=== PATIENT | female | born 1975 | race Caucasian/White ===

== ENCOUNTER 2018-11-05 12:15 | Day surgery (SDC) | payer BC, SELFPAY ==
[2018-10-29 08:22] VITALS: BMI 37.3
--- NOTE | 2018-10-29 08:56 | HP_ITS ---
Intake Vital Signs 10/29/18 Height 5 ft 6 in 10/29/18 Weight: 231 lb 10/29/18 Body Mass Index (BMI) 37.3 10/29/18 Blood Pressure 101/64 10/29/18 Blood Pressure Location Rt brachial 10/29/18 Respiratory Rate 18 10/29/18 Pulse Rate 66 Intake Visit Reasons: Inguinal Hernia 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 Is patient in pain?: Yes (left groin) Pain scale (1-10): 6 Allergies No Known Allergies Allergy (Unverified 10/29/18 08:23) Medications bupropion HCl SR 150 mg tablet,12 hr sustained-release 150 mg PO BID 10/29/18 [History Confirmed 10/29/18] cetirizine 10 mg tablet 10 mg PO DAILY 10/29/18 [History Confirmed 10/29/18] PFSH Medical History Environmental allergies (Acute) Surgical History S/P section (Acute) S/P endometrial ablation (Acute) Family History (Updated 10/29/18 @ 08:21 by Eliza Crowell) Mother Cancer throat Social History (Updated 10/29/18 @ 08:56 by Anita Marshall MD) Smoking Status: Never smoker alcohol intake: current alcohol intake frequency: a few times a month HPI HPI HPI: RISA HAYS, is a 43 F who presents to the office today for HPI HPI Surgical H&P: Yes HPI: RISA HAYS, is a 43 F who presents to the office today for left groin pain/left inguinal hernia. Patient states for about the last 3 months she has had pain in her left groin worse with standing rates, it a 5?6/10, +bulge, better with laying down. Patient did have a CT abdomen/pelvis done which did show the left inguinal hernia with fluid and no evidence of bowel herniation. Patient states she did have some nausea however her primary care doctor did put her on ranitidine 2 tabs daily as she does have reflux about every other day, which does control the symptoms and improve the nausea. Patient states she has bowel movements about every other day denies any blood denies any family history of colon cancer. ROS General General: Yes fatigue; no weight change Gastro Gastrointestinal: Yes abdominal pain, No nausea or vomiting, No diarrhea, No constipation, No blood in stool, Yes acid reflux, No hemorrhoids, No ulcers, No gallbladder problem, No black,tarry stools Exam Const General: cooperative, comfortable, no acute distress [facility] Head: normocephalic, atraumatic Resp Effort & Inspection: normal respiratory effort Cardio Rate: regular rate GI Inspection: non-distended Palpation: soft, no guarding, no hernias, nontender Other: groin?positive inguinal hernia on the left, reducible, no obvious hernia detected on the right. Neuro Cranial Nerves: CN's II-XI intact bilaterally Psych Affect: normal affect Assessment & Plan Problems 1. Left inguinal hernia K40.90 2. Gastroesophageal reflux disease K21.9 Plan Plan to do an in the left inguinal herniorrhaphy with mesh. Reviewed the procedure with the patient including the risks, including but not limited to infection, bleeding, paresthesia, chronic pain, injury to small bowel or contents of the inguinal canal, recurrence and anesthesia. Patient and her no further questions at this time. Discussed with patient that if she has reflux symptoms every other day she may benefit from being a PPI like omeprazole 20 mg p.o. daily versus the ranitidine--both OTC. Discussed with patient that her symptoms are controlled on medication and would recommend an EGD at this time however it seems like she has no symptoms on the medication. Also discussed with patient that if she is on this medication for 3 to 5 years recommend also get an EGD just to make sure nothing has been masked with the medication. Again patient and her have no further questions. Anita Marshall M.D. Pager: [phone] [facility] [address] [place] [address], [address] [place] [address] Office: [phone] Plan Detail Follow Up We will schedule left inguinal hernia repair with mesh Coding Level of Care Code Off vis,new,level 3 Diagnoses Left inguinal hernia K40.90 Gastroesophageal reflux disease K21.9 10/29/18 0856 <Electronically signed by Anita Lu am, MD> Date _ Anita Marshall MD I have re-examined the patient. There are no clinical changes since date of exam.
[2018-11-05] VITALS (7 sets, daily range): BP systolic 110–115; BP diastolic 63–81; PULSE 52–84; RESP 16; TEMP 35.7–37; O2SAT 92–100; BMI 37.6
[2018-11-05] MEDS: Cefazolin 2 GM in 0.9% Normal Saline 100 ML IV (14:34)
--- NOTE | 2018-11-05 16:07 | OP.PCM_ITS ---
Report of Operation Date of Procedure: 11/05/18 Pre-Operative Diagnosis: Left inguinal hernia Post-Operative Diagnosis: Left indirect inguinal hernia containing ovary Surgery/Procedure Performed:: Left inguinal hernia repair with mesh geological engineering teacher: Julisa Arizmendi Type of Anesthesia:: General/Supplemental Anesthesiologist: Olvin Georges Special Medications: Ancef 2 g IV x1 Specimen's removed: none Estimated Blood Loss (mL): 10 cc Fluids Replaced: 1000 cc Description of Procedure: Indications: This is a 43-year-old female who developed left inguinal hernia. Left inguinal hernia repair with mesh was elected. Description procedure: The patient was taken to the operating room. A timeout was completed verifying correct patient, procedure, site, positioning, and special equipment prior to beginning procedure. General anesthesia was induced. The last groin was prepped and draped in usual sterile fashion. An incision was marked in the natural skin crease and planned in the near the pubic tubercle. A field block was produced by raising skin wheals along the proposed incision in a skin wound was raised about 1 cm medial to the anterior superior iliac spine using 0.25% Marcaine for a total of 18 mL. Skin incision was made with 15 blade scapel and deepened through the Josesito and Camper's fascia with electrocautery until the aponeurosis of the external oblique was a identified. This was cleaned and the external ring exposed. Hemostasis was achieved in the wound. An incision was made in the midpoint of the external oblique aponeurosis in the direction of its fibers. The ilioinguinal nerve was identified and protected throughout the dissection. Flaps of the external oblique were developed cephalad and inferiorly. The round ligament was identified and an indirect hernia. The round ligament was suture ligated with 2-0 silk. The hernia sac sac was carefully dissected free from the cord down to the level of the internal ring the hernia sac did contain ovary. The sac was opened and contents reduced. A finger was passed into the peritoneal cavity and the floor of the inguinal canal was assessed and found to be adequate. The femoral canal was palpated and no hernia identified. The sac was suture ligated with a 2-0 silk. The stump of the sac was checked for hemostasis and allowed to retract into the abdomen. Attention then turned to the floor of the canal which appeared to be weakened without a well-defined defect or sac. A Bard keyhole mesh (lot [id number] ref [id number]) was cut to the appropriate size after the keyhole was sutured with a [id number] 2-0 silk suture closing off. Beginning at the pubic tubercle, the mesh was sutured to the inguinal ligament inferiorly and the conjoined tendon superiorly using 2 continuous running sutures of 2-0 PDS sutures. Care was taken to assure the mesh was placed to avoid excess tension and no neurovascular structures were caught in the repair. Hemostasis was again checked. Area was irrigated with saline. External oblique aponeurosis was closed running suture of 3-0 Vicryl, taking care not to catch the ilioinguinal nerve in the suture line. Josesito's fascia was closed with interrupted sutures of 3-0 Vicryl. Skin was closed running subcuticular suture of 4-0 Monocryl with Steri-Strips gauze and Tegaderm. Patient tolerated the procedure well and sent to the postanesthesia care in stable condition. Grafts/Implants Used: Bard keyhole mesh (lot [id number] ref [id number]) - Complications none
--- NOTE | 2018-11-05 16:10 | DCINST_ITS ---
Discharge Diet: Light diet - advance as tolerated Discharge Activity: May not drive while taking narcotic pain medications. Ice area for (Minutes): 20 - prn Lifting Restrictions: No lifting greater than 20 poundsx 3 weeks, no strenuous exercise for 6 wks Call your doctor if your incision/area has: Continuous Slow Oozing, Sudden Increased Bleeding, Increased Pain/ Swelling, Increased Redness, Foul Smelling Discharge, Swelling at the incision site Call your doctor if you observe: Fever of 101 or Higher Remove Dressing in (days):: 2 Additional Instructions: Okay to take ibuprofen 400-600 mg PO q6hr PRN along with the hydrocodone/acetaminophen. Avoid Tylenol (acetaminophen) since there is already Tylenol in the hydrocodone/acetaminophen. Take all pain meds with food. hydrocodone/acetaminophen can cause constipation recommend taking daily stool softener (i.e. Colace/docusate) while taking the pain meds. Recommend starting some MiraLAX in 1 to 2 days if no bowel movement. If still no bowel movement the following day recommend taking magnesium citrate half the bottle and waiting 4-6 hours if still no results take the other half the bottle. Allergies/Adverse Reactions: Allergies No Known Allergies Allergy (Unverified 10/31/18 10:03) Medications to take at Discharge bupropion HCl SR 150 mg tablet,12 hr sustained-release 150 mg PO BID 10/29/18 cetirizine 10 mg tablet 10 mg PO PRN PRN 10/29/18 Ranitidine [Zantac] 150 mg PO DAILY 10/31/18 Hydrocodone Bitart/Apap 5-325 [[place] 5MG-325MG] 1 - 2 tab PO Q6H PRN PRN 4 Days #25 tab 11/05/18 The following prescriptions were given: Hydrocodone Bitart/Apap 5-325 [[place] 5MG-325MG] 1 - 2 tab PO Q6H PRN PRN 4 Days #25 tab PRN Reason: Pain Transmission Status: Received by [id number] Primary Care Physician: Charbel Delcid MD [Primary Care Provider] - Test Results: Test results from this visit will be discussed in further detail at your follow- up appointment, if applicable. Please Follow Up With: Anita Marshall MD - After 5 PM and on the weekends call [phone] with any concerns When: Call for follow-up appointment in 2 weeks. [phone] Proposed Discharge Date: 11/05/18
[2018-11-05] MEDS: HYDROcodone Bitartrate/Apap 5/325 Tablet PO (18:24)
== END 2018-11-05 18:50 | disposition home or self-care (01) ==
LOC: SDC 12:17 → AC 12:18
PROVIDERS: Family Provider Family Medicine; PCP Family Medicine; Referring Provider Surgery; Visit Provider Surgery
PROC: (CPT 49505; principal; 2018-11-05 14:00)
DX: K40.90 Unilateral inguinal hernia, without obstruction or gangrene, not specified as recurrent (principal); K21.9 Gastro-esophageal reflux disease without esophagitis; J45.909 Unspecified asthma, uncomplicated; Z79.899 Other long term (current) drug therapy
CPT/HCPCS: 49505; J7120; C1781; J2405

== ENCOUNTER 2023-04-02 07:23 | Emergency (ER) | payer OTHER, SELFPAY ==
[2023-04-02 07:24] VITALS: BP 141/94; PULSE 69; RESP 14; TEMP 36.7; O2SAT 100; BMI 41.3
[2023-04-02 08:07] LABS: Absolute Lymphocyte Count 2.32 X10^3/uL (0.83-4.51); Absolute Neutrophil Count 2.7 X10^3/uL (2.0-7.7); Basophil# 0.03 X10^3/uL; Basophil% 0.5 % (0-1); Eosinophil# 0.15 X10^3/uL; Eosinophils% 2.7 % (0-5); Hematocrit 42.3 % (37-47); Hemoglobin 13.7 g/dL (12.0-15.0); Lymphocyte # 2.32 X10^3/ul (0.83-4.51); Lymphocyte % 41.4 % (19-41); Mean Corp Hgb Conc 32.4 g/dL (32-36); Mean Corpuscular Hgb 27.5 pg (27.0-32.0); Mean Corpuscular Volume 84.9 fL (81-99); Mean Platelet Vol. 9.7 fl (6.2-12.0); Monocyte# 0.44 X10^3/uL; Monocyte% 7.9 % (0-10); NRBC Flagged by Analyzer 0 % (0-5); Neutrophil # 2.65 X10^3/uL (2.7-7.7); Neutrophil % 47.3 % (47-70); Platelet Count 224 K/mm3 (150-450); RBC Distribution Width CV 12.6 % (11.6-14.6); RBC Distribution Width SD 38.3 fl (35.1-43.9); Red Blood Count 4.98 M/mm3 (4.2-5.4); White Blood Count 5.6 K/mm3 (4.4-11.0)
--- NOTE | 2023-04-02 08:22 | CT_ITS ---
STUDY: CT ABDOMEN AND PELVIS WITH CONTRAST REASON FOR EXAM: Female, 47 years old. Abdominal pain. History of prior hernia repair. RADIATION DOSAGE (If Supplied By Facility): CTDIvol = ( 19.5 ) mGy, DLP = ( 1288.76 ) mGycm TECHNIQUE: Transaxial images were obtained from the dome of the diaphragm to the symphysis pubis without oral contrast. IV 100mL Isovue-370 was administered. Sagittal and coronal images were reconstructed. Individualized dose optimization techniques were used for this CT. COMPARISON: None. FINDINGS: Minimal increase in markings in the posterior aspect of the lingular segment of the left upper lobe suggestive of scarring. Minimal increased markings at the lung bases suggestive of either basilar atelectasis and/or linear scarring. The visualized portions of the heart are within normal limits. There is mild hepatomegaly with diffuse hepatic enlargement. Normal gallbladder and extrahepatic biliary system. Normal spleen. Normal pancreas. Normal bilateral adrenal glands. Normal right kidney. Normal left kidney. There is a small hiatal hernia. Normal small intestine. There are multiple colonic diverticula consistent with diverticulosis. The appendix is visualized and appears normal. Normal abdominal aorta. Normal inferior vena cava. Normal retroperitoneum. Normal urinary bladder. There is absence of the uterus consistent with a prior hysterectomy. Is evidence of an umbilical hernia more prominent on the left side of the midline containing fat. The neck of the hernia measures 3.5 cm. Increased markings are seen within the herniated fat extending into the anterior peritoneal fat. A Moya type of hernia should be ruled out. There is no evidence of bowel obstruction at this time. Normal osseous structures. CT/Abdomen/Pelvis W IV Cont ONLY IMPRESSION: Mild hepatomegaly. Umbilical hernia containing fat with increased markings within the fat suggestive of a possible Moya-type hernia. No evidence of bowel obstruction at this time. Electronically Signed: Pierce Hunter MD at 9:19 EST ,
--- NOTE | 2023-04-02 08:23 | ED.VIS.GI ---
HPI HPI - GI History of Present Illness Chief Complaint: Abd Pain Narrative Narrative: 47-year-old female presenting with abdominal pain. She describes it is around her umbilicus. Patient states this started this morning at about 2 AM. She has had 5 episodes of nausea and vomiting. No fevers or chills. No diarrhea constipation. No abdominal trauma. Patient states that she thinks he might have a hernia, but denies feeling a pop. She has a history of an inguinal hernia but not a ventral wall hernia. The only abdominal surgery she had is hysterectomy. PFSH PFS Medical History Asthma Environmental allergies Home Medications albuterol sulfate 90 mcg/actuation aerosol inhaler (ProAir HFA) 1 inh inhalation Q6H 04/02/23 [History Last Taken 04/01/23] famotidine 10 mg tablet 10 mg PO DAILY 04/02/23 [History Last Taken 04/02/23] fluticasone propionate 115 mcg-salmeterol 21 mcg/actuation HFA inhaler (Advair HFA) 2 inh inhalation Q12H 04/02/23 [History Last Taken 04/01/23] hydrocodone-acetaminophen 5-325mg 5mg-325mg 1 tab PO Q6H PRN PRN Pain 3 days #12 TABLETS 04/02/23 [Rx Last Taken Unknown] polyethylene glycol 3350 17 gram/dose oral powder (ClearLax) 17 g PO DAILY 04/02/23 [History Last Taken 04/02/23] venlafaxine 37.5 mg capsule,extended release 24 hr 37.5 mg PO DAILY 04/02/23 [History Last Taken 04/01/23] Allergy/AdvReac Type Severity Reaction Status Date / Time No Known Allergies Allergy Verified 04/02/23 07:25 Family History Mother Cancer throat Surgical History History of left inguinal hernia repair (~11/2018) S/P section S/P endometrial ablation Social History Smoking Status: Never smoker alcohol intake: current alcohol intake frequency: a few times a month ROS ROS ED Constitutional Constitutional ED: Denies chills, fever(s) or sweats Eyes Eyes: Denies blurry vision or change in vision ENT ENT ED: Denies ear pain or sore throat Cardiovascular Cardiovascular: Denies chest pain, palpitations or racing heartbeat Respiratory/Chest Respiratory/Chest: Denies cough, dyspnea or sputum Gastrointestinal Gastrointestinal: Reports abdominal pain, nausea and vomiting; Denies constipation or diarrhea Genitourinary Genitourinary ED: Denies dysuria, hematuria or urinary frequency Musculoskeletal Musculoskeletal: Denies arthralgias, myalgias or neck pain Integumentary Denies abscess, Abrasions or rash Neurologic Neurologic: Denies headache(s), paresthesias or weakness Psychiatric Psychiatric: Denies anxiety, depression, suicidal ideation or suicidal thoughts Endocrine Endocrinology: Denies polydipsia or polyuria EXAM Physical Exam Const Vital Signs: 04/02/23 07:24 Temperature 98.0 F Temperature Source Temporal Pulse Rate 69 Respiratory Rate 14 Blood Pressure 141/94 H Blood Pressure Mean 109 Pulse Ox 100 Oxygen Delivery Method Room Air Positive well nourished and obese Nutritional Appearance: obese HEENT Reports moist mucous membranes normocephalic Eyes PERRL and EOMs intact bilaterally Resp normal respiratory effort Effort and Inspection: Negative for respiratory distress Cardio regular rate and regular rhythm GI Palpation: tender periumbilical Back/Spine no CVA tenderness Neuro CN's II-XII intact bilaterally Sensorium / Orientation: alert Motor Exam: strength 5/5 throughout Psych mental status grossly normal and thought process normal Skin no wounds MDM MDM MDM Narrative Medical decision making narrative: Patient presenting with abdominal pain. Differential includes gastritis, colitis, diverticulitis, GERD, bowel obstruction, UTI, pyelonephritis, constipation, appendicitis. CBC will be obtained to assess white blood cell count, hemoglobin, platelets. CMP to assess liver function, renal function, electrolytes. Lipase to assess for pancreatitis. Urinalysis to assess for UTI. Patient medicated with morphine, Zofran. CBC shows a normal white blood cell count of 5.6. Hemoglobin 13.7. Platelets normal at 224. LFTs, lipase, renal function, electrolytes all within normal limits. Urinalysis negative for infection. CT of the abdomen pelvis with IV contrast shows concern for ventral wall hernia. Discussed the case with Dr. Ford to see the patient the bedside. The hernia had already reduced itself after getting morphine. Patient was counseled that she can follow-up in office with him. Pain is controlled. He recommended giving her some pain medication for home so I did give her some [place]. Return precautions were discussed. Impression: 1. Umbilical hernia 2. Abdominal pain 3. Nausea/vomiting. Lab Data Labs: Laboratory Results - last 24 hr 04/02/23 04/02/23 07:55 09:17 WBC 5.6 RBC 4.98 Hgb 13.7 Hct 42.3 MCV 84.9 MCH 27.5 MCHC 32.4 RDW Std Deviation 38.3 RDW Coeff of Doron 12.6 Plt Count 224 MPV 9.7 Immature Gran % (Auto) 0.200 Neut % (Auto) 47.3 Lymph % (Auto) 41.4 H [place] % (Auto) 7.9 Eos % (Auto) 2.7 Baso % (Auto) 0.5 Absolute Neuts (auto) 2.7 Absolute Lymphs (auto) 2.32 Nucleated RBC % 0 Sodium 141 Potassium 3.4 L Chloride 107 Carbon Dioxide 28.0 Anion Gap 6 BUN 14 Creatinine 0.81 Estim Creat Clear Calc 78.65 Est GFR (MDRD) Af Amer 96 Est GFR (MDRD) Non-Af 79 BUN/Creatinine Ratio 17.2 Glucose 125 H Calcium 9.0 Total Bilirubin 0.70 AST 15 ALT 16 Alkaline Phosphatase 86 Total Protein 7.2 Albumin 3.6 Globulin 3.6 Albumin/Globulin Ratio 1.0 Lipase 30 Urine Color Yellow Urine Clarity Sl. Cloudy Urine pH 7.0 Ur Specific [place] 1.010 Urine Protein Negative Urine Glucose (UA) Normal Urine Ketones Negative Urine Occult Blood Negative Urine Nitrite Negative Urine Bilirubin Negative Urine Urobilinogen Normal Ur Leukocyte Esterase 25 H Urine RBC 0 SEEN Urine WBC 0 SEEN Ur Squamous Epith Cells 25-50 SEEN Urine Bacteria 0 SEEN Urine Mucus 0 SEEN Urine Test Negative Radiography Diagnostic Testing: Clinical Impression(s) from Imaging Studies Abdomen/Pelvis CT 04/02/23 08:22 IMPRESSION: Mild hepatomegaly. Umbilical hernia containing fat with increased markings within the fat suggestive of a possible Moya-type hernia. No evidence of bowel obstruction at this time. Electronically Signed: Pierce Hunter MD at 9:19 EST , Discharge Plan Triage Chief Complaint: Abd Pain ED Provider: Tu Boswell Dx/Rx/DC Orders Instructions: ED Hernia (Adult) Prescriptions: New hydrocodone-acetaminophen 5-325 mg tablet 1 tab PO Q6H PRN PRN (Reason: Pain) 3 Days Qty: 12 0RF No Action fluticasone propion-salmeterol [Advair HFA] 115-21 mcg/actuation HFA aerosol inhaler 2 inh INHALATION Q12H venlafaxine 37.5 mg capsule,extended release 24hr 37.5 mg PO DAILY albuterol sulfate [ProAir HFA] 90 mcg/actuation HFA aerosol inhaler 1 inh inhalation Q6H polyethylene glycol 3350 [ClearLax] 17 gram/dose powder 17 g PO DAILY Patient Comments: PT STATES TOOK THIS AM BUT THREW UP IMMEDIATELY AFTER TAKING famotidine 10 mg tablet 10 mg PO DAILY Patient Comments: PT STATES TOOK THIS AM BUT THREW UP IMMEDIATELY AFTER TAKING Primary Care Provider: Tai Gonzalez Referrals: Alfonzo Ford MD [Med Staff - Active Staff] - 3-5 Days Charbel Delcid MD [Non-Staff] - Disposition Disposition: Home, Self Care
[2023-04-02 08:29] LABS: AST(SGOT) 15 U/L (15-37); Alanine Aminotransfer ALT/SGPT 16 U/L (13-56); Albumin, Serum 3.6 g/dL (3.2-5.0); Alkaline Phosphatase 86 U/L (45-117); Anion Gap 6 (5-15); BUN 14 mg/dL (7-18); BUN/Creat Ratio 17.2 RATIO (10-20); Chloride 107 mmol/L (98-107); Creatinine, Serum 0.81 mg/dL (0.55-1.02); EST Glomerular Filtration Rate 79 mL/min (>60); Est Glom Filt Rate - Afr Amer 96 mL/min (>60); Estimated Creatinine Clearance 78.65 ml/min; Globulin 3.6 g/dL (2.2-4.2); Glucose 125 mg/dL (74-106); Lipase 30 U/L (13-75); Potassium 3.4 mmol/L (3.5-5.1); Protein, Total 7.2 g/dL (6.4-8.2); Sodium Level 141 mmol/L (136-145)
[2023-04-02] MEDS: Morphine 4 MG/ML Syringe IV (08:35)
[2023-04-02] MEDS: Ondansetron 4 MG/2 ML Vial IV (08:35)
[2023-04-02 09:24] LABS: Bacteria 0 SEEN /hpf (None Seen); Mucous, Urine 0 SEEN /hpf (<or=2+); Red Blood Cells-Urine 0 SEEN /hpf (0-5); White Blood Cells 0 SEEN /hpf (0-5)
[2023-04-02 09:41] LABS: Color, Urine Yellow (Yellow); Glucose, Dipstick Normal (Normal); Ketone-Dipstick Negative (Negative); Leukocyte Esterase-Dipstick 25 /ul (Negative); Nitrite-Dipstick Negative (Negative); Occult Blood-Urine Negative /ul (Negative); Protein-Dipstick Negative (Negative); Urine Bilirubin Dipstick Negative (Negative); Urine Clarity Sl. Cloudy (Clear); Urine Urobilinogen Normal (Normal)
[2023-04-02 09:49] LABS: Internal QC Validated? YES +Cl - CLEAR BKGD; Pregnancy, Urine Negative Negative; Squamous Epithelial Cells - UA 25-50 SEEN /hpf (5-10)
--- NOTE | 2023-04-02 09:52 | EX.PCM.CON.S ---
Assessment & Plan Assessment/Plan (1) Ventral incisional hernia without gangrene: PLAN: The patient had a CT scan which showed a small incisional hernia at the umbilicus. Likely from her hysterectomy. The hernia was reduced by the time I made up to the patient's room. The patient is feeling much better. I discussed elective umbilical hernia repair with mesh. Patient will follow-up in the office to discuss surgery. Alfonzo Ford MD Pager: [facility] [address] [place] [address], [address] [place] [address] Office: HPI Consult Data Date of Consult: 04/02/23 HPI Narrative HPI Narrative: RISA HAYS, is a 47 F who presents with a painful umbilicus. The patient has an incision at this site from her hysterectomy. Patient states the bulging started 2 months ago. She denies nausea or vomiting or fevers or chills. [facility] Medical History Asthma Environmental allergies Home Medications albuterol sulfate 90 mcg/actuation aerosol inhaler (ProAir HFA) 1 inh inhalation Q6H 04/02/23 [History Last Taken 04/01/23] famotidine 10 mg tablet 10 mg PO DAILY 04/02/23 [History Last Taken 04/02/23] fluticasone propionate 115 mcg-salmeterol 21 mcg/actuation HFA inhaler (Advair HFA) 2 inh inhalation Q12H 04/02/23 [History Last Taken 04/01/23] hydrocodone-acetaminophen 5-325mg 5mg-325mg 1 tab PO Q6H PRN PRN Pain 3 days #12 TABLETS 04/02/23 [Rx Last Taken Unknown] polyethylene glycol 3350 17 gram/dose oral powder (ClearLax) 17 g PO DAILY 04/02/23 [History Last Taken 04/02/23] venlafaxine 37.5 mg capsule,extended release 24 hr 37.5 mg PO DAILY 04/02/23 [History Last Taken 04/01/23] Allergy/AdvReac Type Severity Reaction Status Date / Time No Known Allergies Allergy Verified 04/02/23 07:25 Family History Mother Cancer throat Surgical History History of left inguinal hernia repair (~11/2018) S/P section S/P endometrial ablation Social History Smoking Status: Never smoker alcohol intake: current alcohol intake frequency: a few times a month ROS Constitutional Constitutional: Denies anorexia, chills, fatigue or fever(s) Eyes Eyes: Denies blurry vision ENT HEENT: Denies nasal discharge Cardiovascular Cardiovascular: Denies chest pain Respiratory/Chest Respiratory/Chest: Denies cough or dyspnea Gastrointestinal Gastrointestinal: Reports abdominal pain; Denies constipation, nausea or vomiting Genitourinary Genitourinary: Denies change in urinary stream Musculoskeletal Musculoskeletal: Denies abnormal gait Integumentary Integumentary: Denies jaundice Neurologic Neurologic: Denies abnormal gait Physical Exam Const alert and oriented x3 Eyes PERRL Lymph Lymphatic: no lymphadenopathy noted Resp normal respiratory effort Cardio Rate: regular rate Rhythm: regular rhythm GI soft to palpation GI Narrative: Small umbilical hernia measuring approximately 1 cm Lab / Micro Data 04/02/23 07:55 04/02/23 07:55 Labs: Laboratory Results - last 24 hr 04/02/23 07:55: WBC 5.6, RBC 4.98, Hgb 13.7, Hct 42.3, MCV 84.9, MCH 27.5, MCHC 32.4, RDW Std Deviation 38.3, RDW Coeff of Doron 12.6, Plt Count 224, MPV 9.7, Immature Gran % (Auto) 0.200, Neut % (Auto) 47.3, Lymph % (Auto) 41.4 H, [place] % (Auto) 7.9, Eos % (Auto) 2.7, Baso % (Auto) 0.5, Absolute Neuts (auto) 2.7, Absolute Lymphs (auto) 2.32, Nucleated RBC % 0, Sodium 141, Potassium 3.4 L, Chloride 107, Carbon Dioxide 28.0, Anion Gap 6, BUN 14, Creatinine 0.81, Estim Creat Clear Calc 78.65, Est GFR (MDRD) Af Amer 96, Est GFR (MDRD) Non-Af 79, BUN/Creatinine Ratio 17.2, Glucose 125 H, Calcium 9.0, Total Bilirubin 0.70, AST 15, ALT 16, Alkaline Phosphatase 86, Total Protein 7.2, Albumin 3.6, Globulin 3.6, Albumin/Globulin Ratio 1.0, Lipase 30 04/02/23 09:17: Urine Color Yellow, Urine Clarity Sl. Cloudy, Urine pH 7.0, Ur Specific [place] 1.010, Urine Protein Negative, Urine Glucose (UA) Normal, Urine Ketones Negative, Urine Occult Blood Negative, Urine Nitrite Negative, Urine Bilirubin Negative, Urine Urobilinogen Normal, Ur Leukocyte Esterase 25 H, Urine RBC 0 SEEN, Urine WBC 0 SEEN, Ur Squamous Epith Cells 25-50 SEEN, Urine Bacteria 0 SEEN, Urine Mucus 0 SEEN, Urine Test Negative Imagaing Radiology Impression Abdomen/Pelvis CT 04/02/23 08:22 IMPRESSION: Mild hepatomegaly. Umbilical hernia containing fat with increased markings within the fat suggestive of a possible Moya-type hernia. No evidence of bowel obstruction at this time. Electronically Signed: Pierce Hunter MD at 9:19 EST ,
[2023-04-02 10:13] VITALS: BP 132/89; PULSE 87; RESP 16; O2SAT 96
== END 2023-04-02 10:14 | disposition home or self-care (01) ==
PROVIDERS: Emergency Provider Student in an Organized Health Care Education/Training Program; PCP Family Medicine; Visit Provider Student in an Organized Health Care Education/Training Program
DX: K43.2 Incisional hernia without obstruction or gangrene (principal); R11.2 Nausea with vomiting, unspecified; J45.909 Unspecified asthma, uncomplicated; Z79.51 Long term (current) use of inhaled steroids; Z90.710 Acquired absence of both cervix and uterus
CPT/HCPCS: 74177; 80053; 81001; 81025; 83690; 85025; 96374; 96375; 99283; J7030; Q9967; A4216; J2405

== ENCOUNTER 2023-04-12 12:37 | Day surgery (SDC) | payer OTHER, SELFPAY ==
[2023-04-12] VITALS (7 sets, daily range): BP systolic 124–137; BP diastolic 81–96; PULSE 64–86; RESP 16–64; TEMP 36.2–36.9; O2SAT 93–100; BMI 41.6
--- NOTE | 2023-04-12 | HERN_PTH ---
PATIENT: RISA HAYS LOC: [facility] [place] U#:[id number] AGE/SX: 47/F ROOM: RE04/12/[address]: Dr. Anita Marshall MD : 1975 BED: DIS: 04/12/2023 SPEC #: [id number] RECD: 04/12/23 15:27 STATUS: NURIA YENNI #: [id number] MICHAEL: 04/12/23 00:[address]: Anita Marshall DEPT: SURGICAL PATHOLOGY RECD BY: Artur Mcgrath ENTERED: 04/13/23 08:43 SP TYPE: Hernia OTHR DR: Dr. Tai Gonzalez MD Tissues: HERNIA Procedures: Surgery Specimen Level II HEADER OPERATION: Open hernia incisional repair with mesh PRE-OP DIAGNOSIS: Incarcerated incisional hernia TISSUE SUBMITTED: Hernia sac MICROSCOPIC DIAGNOSIS Incarcerated incisional hernia, herniorrhaphy: Fibrosis and mild chronic inflammation. AM:jeronimo 04/16/2023 MICROSCOPIC DESCRIPTION Slides are reviewed. GROSS DESCRIPTION Received in fixative is one container labeled with the patient's name and designated hernia sac. The specimen consists of an irregular glistening fragment of pink-hester soft tissue measuring 4.5 x 3.5 x 0.6 cm. Pulp Mixer sections are submitted in one cassette. / AM:jeronimo 04/13/2023 TC:3 CPT: 99303
[2023-04-12] MEDS: Lactated Ringers 1,000 ML 15 ML IV (13:30)
--- NOTE | 2023-04-12 13:44 | HP.PCM_ITS ---
History and Physical Date of Admission: 04/12/23 Date of Service: 04/05/23 MR#: [id number] Acct: [id number] Name: RISA HAYS Rep #: [id number] : 1975 Provider: Dr. Anita Marshall MD Age/Sex: 47/F Location: [facility] Status: Signed Intake Vital Signs 04/02/2307:24 04/05/2309:09 Height 5 ft 6 in 5 ft 6 in Weight: 256 lb 1 oz 261 lb BMI 41.3 42.1 BP 141/94 H 122/87 H Blood Pressure Location Rt brachial Position Sitting Respiration 14 16 Pulse 69 Temp 98.0 F Temp Source Temporal Pulse Oximetry (%) 100 Intake Visit Reasons: ED 04-01 - HERNIA Chief Complaint: incisional hernia Manager Investment Required: No Is patient in pain?: Yes (umbilicus) Allergies No Known Allergies Allergy (Verified 04/05/23 09:09) Medications albuterol sulfate 90 mcg/actuation aerosol inhaler (ProAir HFA) 1 inh inhalation Q6H 04/02/23 [History Confirmed 04/05/23] famotidine 10 mg tablet 10 mg PO DAILY 04/02/23 [History Confirmed 04/05/23] fluticasone propionate 115 mcg-salmeterol 21 mcg/actuation HFA inhaler (Advair HFA) 2 inh inhalation Q12H 04/02/23 [History Confirmed 04/05/23] polyethylene glycol 3350 17 gram/dose oral powder (ClearLax) 17 g PO DAILY 04/02/23 [History Confirmed 04/05/23] PFSH Medical History Asthma Environmental allergies Surgical History History of left inguinal hernia repair (~11/2018) S/P section S/P endometrial ablation Family History (Updated 04/05/23 @ 09:10 by Eliza Crowell) Mother Cancer throat Thyroid disorder Social History Smoking Status: Never smoker alcohol intake: current alcohol intake frequency: a few times a month HPI HPI HPI: 47-year-old female presents due to incisional hernia at umbilicus. Patient did have increased pain and firmness at this location did go to the ER and Dr. Ford was able to reduce on 04/02/2023, CT abdomen pelvis was done which did show incisional hernia prior to being reduced in the ER.. Patient states currently it is soft and patient is tolerating diet and having bowel function. Patient had a hysterectomy last February and did have an incision at this area. ROS General General: Yes fatigue; No weight change, appetite, colon cancer or breast cancer HEENT HEENT: No difficulty swallowing, eye injury, eye surgery, swollen glands or hoarseness Endo Endocrine: No thyroid disease, diabetes mellitus, thyroid cancer, Hair loss, heat intolerance or cold intolerance Skin Skin: No rash or changing moles Musc Musculoskeletal: No back problems, arthritis, rheumatoid arthritis, gout or join t pain Cardio Cardiovascular: No murmur, pacemaker, heart disease, atrial fibrillation, high blood pressure, heart attack, heart stent, palpitations, shortness of breat with exertion or chest pain Psych Psychiatric: Yes anxiety; No depression or hearing voices Resp Respiratory: No shortness of breath, No sleep apnea, No cough, No COPD, Yes asthma, No emphysema and No wheezing Gastro Gastrointestinal: Yes abdominal pain, No nausea or vomiting, No diarrhea, Yes constipation, No blood in stool, No acid reflux, Yes hemorrhoids, No ulcers, No gallbladder problem and No black,tarry stools [place] Hematologic: No blood thinners, No blood disorders, No bleeding, No anemia and No blood clots Neuro Neurologic: No numbness and No tingling Exam Const General: cooperative, healthy appearing and no acute distress Nutritional Appearance: well nourished [facility] Head: normal to inspection Resp Effort & Inspection: normal respiratory effort Auscultation: clear to auscultation bilaterally Cardio Rate: regular rate Rhythm: regular rhythm GI Inspection: non-distended Palpation: soft, no guarding, hernia (Incisional at umbilicus, mostly reducible, soft, nontender) and nontender Skin General: no rashes or lesions noted Neuro General: patient alert, patient awake and patient oriented x3 Extrem General: no clubbing, cyanosis or edema Psych Affect: normal affect Assessment and Plan Assessment and Plan (1) Incarcerated incisional hernia: Status: Acute Plan Patient's hernia is mostly reducible only a small part does not feel like it completely reduces but it is soft and nontender. Patient is having bowel function and tolerating diet. Discussed with patient if before surgery this area gets harder and painful she may need to come to the ER again. Plan to do open incisional hernia repair with mesh. Reviewed the procedure with the patient including the risks, including but not limited to infection, bleeding, paresthesia, injury to small bowel, and recurrence. Patient expressed understanding had no further questions this time. Anita Marshall M.D. Pager: [phone] [facility] [address] [place] [address], [address] [place] [address] Office: [phone] Coding Level of Care Code Off vis,est,level 3 Diagnoses Incarcerated incisional hernia K43.0 04/05/23 1047 <Electronically signed by Anita Marshall MD> Date Anita Marshall MD
[2023-04-12] MEDS: Cefazolin 2 GM in 0.9% Normal Saline (100mL Bag) 100 ML IV (13:55)
--- NOTE | 2023-04-12 14:46 | PCM.OPRPT ---
Report of Operation Date of Procedure: 04/12/23 Pre-Operative Diagnosis: Incisional hernia?incarcerated Post-Operative Diagnosis: Same Surgery/Procedure Performed:: Repair of incarcerated incisional hernia with mesh Surgeon: Anita Marshall Type of Anesthesia: General/Supplemental Anesthesiologist: Olvin Georges Special Medications: Ancef 2 g IV x 1 Specimen's removed: Hernia sac Estimated Blood Loss (mL): <10 cc Description of Procedure: Patient was brought into the room placed supine on the operating table. Correct patient, procedure, site, positioning, special, was verified prior to procedure. General anesthesia was induced. The abdomen was prepped draped in usual sterile fashion. A curvilinear incision was made below the umbilicus with a 15 blade scalpel. This was deepened with electrocautery. A hemostat was used to go around the stalk of the umbilicus and Metzenbaum scissors was used to carefully divide the hernia sac from the skin of the umbilicus. The fascia around the hernia defect was cleared and the hernia defect measured 2 cm x 1.5 cm with an adjacent hernia about 5 mm x 5 mm this was closed with [id number] [address] hernia patch 6.4cm was selected. This was secured laterally at its tails with 0 Prolene horizontal mattress suture. The hernia defect was closed with a [id number] 0 Prolene x 2. The wound was irrigated with saline. Hemostasis was assured. The skin of the umbilicus was secured to the fascia using 3-0 Vicryl suture interrupted. The incision was closed with 3-0 Vicryl subdermal interrupted sutures and the skin was closed with interrupted 4-0 Monocryl sutures. Steri-Strips and Tegaderm and OpSite were placed over the incision once sterile cotton balls were placed in the umbilicus. Patient was extubated. Patient tolerated procedure well and was taken to the postanesthesia care unit in stable condition. Grafts/Implants Used: Ventralex ST hernia patch Lot [id number] Complications none
[2023-04-12] MEDS: Bupivacaine Mpf 0.5% 30 ML VIAL (14:53)
--- NOTE | 2023-04-12 14:53 | DCINST_ITS ---
Discharge Instructions Diet Discharge Diet: Light diet - advance as tolerated Activity May shower in (days): 5 (Keep umbilical dressing clean dry and intact for 5 days. Okay to tape off with a Ziploc bag to shower. Or lower shower and upper sponge bath.) Lifting Restrictions: no lifting >20 lbs x 2 wks, no strenuous exercise for 4 wks Additional Activity Instructions:: - Dressing / Incision Call your doctor if your incision/area has: Continuous Slow Oozing, Sudden Increased Bleeding, Increased Pain/ Swelling, Increased Redness, Foul Smelling Discharge and Swelling at the incision site Call your doctor if you observe: Fever of 101 or Higher Remove Dressing in: 5 days (After 5 days okay to remove surgical dressing. Place cotton ball or rolled up gauze in bellybutton and retape daily for 2 more days.) Cleanse incision/area with: Do not get Incision Wet (for 5 days) Additional Dressing/Incision Instructions:: Steri-Strips will fall off in 7 to 10 days, if they do not fall off okay to remove after 10 days. Follow Up Care Please Follow Up With: Anita Marshall MD When: Call the office for a follow-up appointment 2 weeks; after 5 PM and on the weekends call [phone] with any concerns. Test Results: Test results from this visit will be discussed in further detail at your follow- up appointment, if applicable. Discharge Plan Admission Attending Provider: Anita Marshall Primary Care Provider: Tai Gonzalez Discharge Orders/Prescriptions Prescriptions: New oxycodone-acetaminophen 5-325 mg tablet 1 - 2 tab PO Q6H PRN (Reason: pain) 3 Days Qty: 14 0RF Continued Imvexxy Maintenance Pack 10 mcg insert 10 mcg VAGINAL .2XWEEK Patient Comments: ONCE ON SUNDAY AND ONCE ON SUNDAY fluticasone propion-salmeterol [Advair HFA] 115-21 mcg/actuation HFA aerosol inhaler 2 inh INHALATION Q12H albuterol sulfate [ProAir HFA] 90 mcg/actuation HFA aerosol inhaler 1 inh inhalation Q6H PRN (Reason: shortness of breath or wheezing) polyethylene glycol 3350 [ClearLax] 17 gram/dose powder 17 g PO DAILY Patient Comments: PT STATES TOOK THIS AM BUT THREW UP IMMEDIATELY AFTER TAKING famotidine 10 mg tablet 10 mg PO DAILY Patient Comments: PT STATES TOOK THIS AM BUT THREW UP IMMEDIATELY AFTER TAKING Referrals / Follow Up: Tai Gonzalez MD [Primary Care Provider] - Disposition Disposition (needs filled in before D/C Order can be placed): Home, Self Care
[2023-04-12] MEDS: Oxycodone/Apap 5/325 Tablet PO (16:33)
== END 2023-04-12 17:35 | disposition home or self-care (01) ==
LOC: SDC 12:38 → AC 12:40
PROVIDERS: PCP Family Medicine; Referring Provider Surgery; Visit Provider Surgery
PROC: (CPT 49592; principal; 2023-04-12 14:00)
DX: K43.0 Incisional hernia with obstruction, without gangrene (principal); J45.909 Unspecified asthma, uncomplicated; K21.9 Gastro-esophageal reflux disease without esophagitis
CPT/HCPCS: 49592; 00752; 88302; C1781; J7120; J2405